=== PATIENT | male | born 1995 | race Two or more races ===

== ENCOUNTER 2018-05-10 22:36 | Emergency (ER) | payer MEDICAID ==
[~2018-05-10] VITALS: Ht 188 cm; Wt 136.1 kg
[2018-05-10] MEDS ORDERED: methylPREDNISolone SOD SUCC 125 MG/2 ML VL ONE (22:50)
[2018-05-10] MEDS ORDERED: diphenhdrAMINE HCL 50 MG/1 ML VL ONE (22:50)
[2018-05-10] MEDS ORDERED: DEXAMETHASONE SOD PHOS 10MG/1ML VIAL INJ IV ONE (23:00)
[2018-05-10] MEDS ORDERED: SODIUM CHLORIDE 0.9% 1,000 ML IV ONE (23:00)
[2018-05-10] MEDS ORDERED: FAMOTIDINE (10MG/ML) 2ML VL IV ONE (23:00)
[2018-05-10] MEDS ORDERED: diphenhdrAMINE HCL 50 MG/1 ML VL IV ONE (23:00)
[2018-05-11 01:18] VITALS: BP 132/77
== END 2018-05-11 01:56 | disposition home or self-care (01) ==
LOC: ER 22:43
DX: L50.0 Allergic urticaria (principal); Z90.49 Acquired absence of other specified parts of digestive tract
CPT/HCPCS: 96374; 96375; 99284; J1100; J1200; J2930; J3490

== ENCOUNTER 2019-04-07 16:17 | Emergency (ER) | payer MEDICAID ==
[~2019-04-07] VITALS: Ht 188 cm; Wt 133.8 kg
[2019-04-07] MEDS ORDERED: diphenhdrAMINE HCL 50 MG/1 ML VL ONE (16:31)
[2019-04-07] MEDS ORDERED: methylPREDNISolone SOD SUCC 125 MG/2 ML VL ONE (16:31)
[2019-04-07] MEDS ORDERED: diphenhdrAMINE HCL 50 MG/1 ML VL IV ONE (16:45)
[2019-04-07] MEDS ORDERED: methylPREDNISolone SOD SUCC 125 MG/2 ML VL IV ONE (16:45)
[2019-04-07 17:31] LABS: Basophils # (auto) 0.1 uL; Basophils % (auto) 1.4 % (0.0-2.0); Eosinophils # (auto) 0.3 uL; Eosinophils % (auto) 4.2 % (0.0-7.0); Hematocrit 48.2 % (41.0-53.0); Hemoglobin 16.5 g/dL (13.5-17.5); Lymphocytes # (auto) 2.9 uL; Lymphocytes % (auto) 37.1 % (10.0-50.0); Mean Corpuscular Hemoglobin 29.4 pg (28.0-32.0); Mean Corpuscular Hgb Conc. 34.2 g/dL (32.0-36.0); Mean Corpuscular Volume 85.9 fL (80.0-100.0); Monocytes # (auto) 0.7 uL; Monocytes % (auto) 8.7 % (0.0-12.0); Neutrophils # (auto) 3.7 uL; Neutrophils % (auto) 48.6 % (37.0-80.0); Nucleated Red Blood Cells % 0.2 %; Platelet Count (auto) 320 10^3/uL (140-450); Red Blood Cells 5.61 10^6/uL (4.5-5.90); Red Cell Distribution Width 14.3 % (11.8-14.3); White Blood Cell 7.7 10^3/uL (4.4-10.8)
[2019-04-07 17:50] LABS: Calcium 8.8 mg/dL (8.5-10.1); Potassium 3.7 mmol/L (3.5-5.1)
[2019-04-07 17:54] LABS: BUN/Creatinine Ratio 12.8; Bilirubin, Total 0.4 mg/dL (0.2-1.0); Total Protein 8.1 g/dL (6.4-8.2)
[2019-04-07 19:20] VITALS: BP 124/98
== END 2019-04-07 20:45 | disposition home or self-care (01) ==
LOC: ER 16:17
DX: T78.1XXA Other adverse food reactions, not elsewhere classified, initial encounter (principal); Z90.49 Acquired absence of other specified parts of digestive tract
CPT/HCPCS: 36415; 80053; 85025; 94761; 96374; 96375; 99283; J1200; J2930